=== PATIENT | female | born 1980 | race Caucasian/White ===

== ENCOUNTER 2017-05-04 21:06 | Inpatient (IN) | payer OTHER ==
--- NOTE | ~2017-05-04 | DS ---
Unit #: [id number] #: [id number] Patient: GREGG AVILA [id number] [facility] [address] [place] [address] [id number] MR#: [id number] NAME: GREGG AVILA [facility]: [facility] Age: 36 Sex: F Admission Date: 05/05/2017 : 1980 Discharge Date: 05/08/2017 Attending Physician: Karthikeyan Antonoi M.D. Primary Care Physician: Lala Wong A.P.R.N. DISCHARGE SUMMARY REASON FOR ADMISSION The patient is a 36-year-old white female, admitted with worsening depression and suicidal ideations with plan to cut her wrist. HOSPITAL COURSE The patient was admitted to the [facility] unit and placed on suicide precautions. She was continued on previously prescribed Pristiq and Wellbutrin XL 150 mg daily was added in hopes of augmenting the antidepressant effect of Pristiq and in hopes of activating in the patient. The patient tolerated the medication without complaint. By 05/07/2017, the patient was denying suicidal ideation and was agreeable with plan for ongoing followup through the auspices of her previous provider in [facility]. As per her request, discharge was ordered. FINAL DIAGNOSES Major depressive disorder, recurrent, moderate; morbid obesity. DISPOSITION ON DISCHARGE The patient is discharged on the following medications: Wellbutrin XL 150 mg daily for depression and Pristiq 100 mg daily for depression. DISCHARGE INSTRUCTIONS No dietary or physical restrictions were placed upon the patient at the time of discharge. FOLLOWUP She will follow up through the auspices of community mental health resources in the [facility]. PROGNOSIS Her prognosis is considered good. Dictated by... Karthikeyan Antonio M.D. ALYSA/misha TD: 05/07/2017 14:51 JOB #: [id number] Unit #: [id number] #: [id number] Patient: GREGG AVILA DISCHARGE SUMMARY Page 1 of 1 X Karthikeyan Antonio MD DISCHARGE SUMMARY
--- NOTE | ~2017-05-04 | PA ---
Unit #: [id number] #: [id number] Patient: GREGG AVILA [id number] [facility] [address] [place] [address] [id number] MR#: [id number] NAME: GREGG AVILA ROOM: [facility] Age: 36 Sex: F Admission Date: 05/05/2017 : 1980 Date of Assessment: 05/05/2017 Attending Physician: Karthikeyan Antonio M.D. Admitting Physician: Karthikeyan Antonio M.D. Primary Care Physician: Lala Wong A.P.R.N. PSYCHIATRIC ASSESSMENT IDENTIFYING INFORMATION The patient is a 36-year-old white female admitted to the [address] [place] [address] Unit with some increasing suicidal ideation with plan to cut her wrist. CHIEF COMPLAINT None given. INFORMANT(S) Patient, reliability is good. HISTORY OF PRESENT ILLNESS The patient is a 36-year-old white female admitted in transfer from [facility]. She presented there avoiding significant positive suicidal ideation with plan to cut her wrist. The patient reports no specific stressor but reports that it is "the stress of everyday life" that has caused her to have these thoughts. The patient reports that she currently lives alone. Her parents have custody of her 2 children. She is presently unemployed after having lost her previous job for frequent absenteeism. The patient denies abuse of any psychoactive substances. She has involved with the outpatient counselor and has been prescribed Pristiq for the past year. She reports that this medication was initially helpful but now complaints that it does not seem to be effective for her. She is complaining of anergy, hypersomnia, lack of energy, and increased appetite. PAST PSYCHIATRIC HISTORY The patient reports one previous psychiatric hospitalization approximately 4 years at [facility] under similar circumstances. She made a suicide attempt at that point. PAST MEDICAL HISTORY The patient is morbidly obese. MEDICATIONS Pristiq. ALLERGIES None reported. FAMILY HISTORY Noncontributory. SOCIAL HISTORY The patient lives alone. She has 2 children but has custody of neither. Unit #: [id number] #: [id number] Patient: GREGG AVILA She is presently unemployed. She denies use of alcohol, tobacco, or street drugs. MENTAL STATUS EXAMINATION Examination at this time reveals the patient to be a morbidly obese white female appearing stated age. She is in no apparent physical distress at the time of examination. She is awake, alert, and oriented in all spheres. Her mood is dysphoric, her affect blunted. Speech is generally well-coherent. There are no gross deficits in memory or cognition noted. Intelligence is judged to be in the average range based on fund of knowledge. The patient is cooperative throughout the interview. She is currently reporting positive suicidal ideation. She denies homicidal ideation. She denies any psychotic symptoms. Her judgment and insight appear to be reasonably intact. ASSETS AND LIABILITIES The patient's assets: Motivation for change. Liabilities: Lack of resources. DIAGNOSTIC IMPRESSION 1. Major depressive disorder, recurrent, severe, without psychotic features. 2. Morbid obesity. TREATMENT PLAN The patient will continue on previously prescribed Pristiq, and we will add Wellbutrin XL 150 mg q.a.m. in hopes of augmenting the antidepressant effect of this medication. The patient will participate in appropriate order of milieu activities. ESTIMATED LENGTH OF STAY 5 to 7 days. Dictated by... Karthikeyan Antonio M.D. Tiago TD: 05/05/2017 13:27 JOB #: [id number] PSYCHIATRIC ASSESSMENT Page 1 of 1 X Karthikeyan Antonio MD X PSYCHIATRIC ASSESSMENT
--- NOTE | ~2017-05-04 | PN ---
Unit #: [id number] #: [id number] Patient: GREGG AVILA [id number] [facility] [address] [place] [address] [id number] MR#: [id number] NAME: GREGG AVILA ROOM: [facility] Age: 36 Sex: F Admission Date: 05/05/2017 : 1980 Attending Physician: Karthikeyan Antonio M.D. Admitting Physician: Karthikeyan Antonio M.D. Primary Care Physician: Cathy Lewis PROGRESS NOTES DATE 05/06/2016. DISCUSSION The patient is in a bit brighter spirits today and has been attending groups. She has tolerated initiation of Wellbutrin without complaint. She is reporting reduced suicidal ideation. She states that she may be ready for discharge as early as tomorrow. Dictated by... Karthikeyan Antonio M.D. CB/gz TD: 05/06/2017 13:37 JOB #: [id number] [facility] PROGRESS NOTES Page 1 of 1 X Karthikeyan Antonio MD X PROGRESS NOTE
--- NOTE | ~2017-05-04 | HP ---
Unit #: [id number] #: [id number] Patient: MELINDA AVILA [id number] [place] [address] [id number] MR#: [id number] NAME: MELINDA AVILA ROOM: [facility] Age: 36 Sex: F Admission Date: 05/05/2017 : 1980 Attending Physician: Karthikyean Antonio M.D. Admitting Physician: Karthikeyan Antonio M.D. Primary Care Physician: Lala Wong A.P.R.N. HISTORY AND PHYSICAL HISTORY OF PRESENT ILLNESS Melinda is a 36 year old admitted to [address] [place] [address] with depression and verbalizing wanting to hurt herself. PAST MEDICAL HISTORY Morbid obesity. PAST SURGICAL HISTORY 1. x2. 2. Varicose veins stripping. ALLERGIES No known drug allergies. SOCIAL HISTORY She denies cigarettes, alcohol and illicit drug use. FAMILY HISTORY Medically noncontributory. REVIEW OF SYSTEMS CONSTITUTIONAL: No fever or chills. HEENT: Denies any sore throat, ear pain or runny nose. CARDIOVASCULAR: Denies chest pain, irregular heart rhythm or palpitations. CHEST: Denies shortness of breath or cough. No hemoptysis. GASTROINTESTINAL: Denies nausea, vomiting, diarrhea or chronic constipation. ENDOCRINE: Denies history of increased thirst or urination. No recent significant weight loss or gain. GENITOURINARY: Denies dysuria, frequency, or hematuria. SKIN: Denies any rashes. HEMATOLOGIC: Denies history of increased bleeding or bruising. MUSCULOSKELETAL: Denies any hot, swollen joints. No generalized muscle pain. NEUROLOGIC: Denies problems with vision or speech. No frequent, severe headaches. No numbness, tingling or weakness in any extremities. Denies loss of bladder or bowel control. CURRENT MEDICATIONS 1. Wellbutrin XL 150 mg q.a.m. 2. Pristiq 100 mg daily. 3. Milk of Magnesia p.r.n. 4. Maalox p.r.n. Unit #: [id number] #: [id number] Patient: MELINDA AVILA 5. Tylenol p.r.n. PHYSICAL EXAMINATION GENERAL: Alert, morbidly obese, no apparent distress. VITAL SIGNS: Blood pressure 152/98, heart rate 74, respirations 16, temperature 98.6. WEIGHT: 330 pounds. HEIGHT: 5 feet 10 inches. SKIN: Warm and dry without rash or lesion. HEENT: Normocephalic. TMs not viewed. Oral and nasal passages clear. Conjunctivae clear. PERRLA. EOMs intact. NECK: Supple without lymphadenopathy or thyromegaly. HEART: Regular rate and rhythm without murmur. LUNGS: Clear. ABDOMEN: Soft, nontender. : Not done. EXTREMITIES: No evidence of cyanosis, clubbing or edema. Moves all without focal deficit. NEUROLOGICAL: Grossly within normal limits. Cranial Nerves: II: Visual mcgee are intact. III, IV AND : Extraocular movements are intact. Pupils are equal, round and reactive to light. V: Facial sensation is grossly normal. VII: Facial movements and expression are normal. VIII: Auditory acuity grossly intact. IX, X: Uvula is midline. Phonation is normal. XI: Patient shrugs shoulders and turns head normally. XII: Tongue protrudes in the midline. Sensory and Motor Function: Sensory and motor sensation is grossly normal. Motor: moves all extremities well. Coordination: Gait is normal. Deep Tendon Reflexes: Intact. IMPRESSION 1. Psychiatric admission. 2. High blood pressure on admission, although she gives no prior history. RECOMMENDATIONS PSYCHIATRIC: Per psychiatrist. MEDICAL: 1. See no contraindications to participate in facility's activities. 2. Monitor blood pressure q. shift. If remains high, will need to address. MEDICAL PROGNOSIS Good. MEDICAL CONDITION Stable. Dictated by... Chelsea Wolf P.A.-C. for Yenifer Solomon/aniket Unit #: [id number] #: [id number] Patient: MELINDA AVILA TD: 05/05/2017 19:58 JOB #: [id number] HISTORY AND PHYSICAL Page 1 of 1 X Chelsea Wolf HISTORY AND PHYSICAL
== END 2017-05-08 09:30 | disposition home or self-care (01) | DRG 885 ==
LOC: P2L 05-05 00:01
DX: F33.2 Major depressive disorder, recurrent severe without psychotic features (principal); E66.01 Morbid (severe) obesity due to excess calories; I10 Essential (primary) hypertension; F33.1 Major depressive disorder, recurrent, moderate
CPT/HCPCS: 84703